=== PATIENT | male | born 1945 | race Caucasian/White ===

== ENCOUNTER 2021-09-19 17:12 | Emergency (ER) | payer MEDICARE ==
[2021-09-19] MEDS ORDERED: fentaNYL 100 MCG/2 ML SDV IVPUSH ONE (17:16)
[2021-09-19] MEDS ORDERED: Ondansetron 4 MG/2 ML SDV IVPUSH ONE (17:16)
[2021-09-19] MEDS ORDERED: HYDROmorphone 0.5 MG/0.5 ML Syringe IVPUSH ONE (18:16)
[2021-09-19 18:55] LABS: ESTIMATED GFR 63 mL/min (>60)
== END 2021-09-19 19:39 | disposition other institution (70) ==
LOC: JP.ED 17:12
DX: S22.42XA Multiple fractures of ribs, left side, initial encounter for closed fracture (principal); J93.9 Pneumothorax, unspecified; Z79.899 Other long term (current) drug therapy; W01.10XA Fall on same level from slipping, tripping and stumbling with subsequent striking against unspecified object, initial encounter
CPT/HCPCS: 36415; 71250; 74176; 80053; 85025; 96374; 96375; 99284; J1170; J2405; J3010